=== PATIENT | female | born 1955 | race Caucasian/White ===

== ENCOUNTER 2021-10-13 12:44 | Emergency (ER) | payer OTHER ==
[~2021-10-13 12:44] MED LIST: ASPIRIN325 MG PO; ATORVASTATIN CA20 MG PO; IBUPROFEN800 M1 PO; METHYLPREDNISOLO4 M1 PO; PREDNISONE 5MG T5 MG PO; TERBINAFINE HC250 MG PO
== END 2021-10-13 15:46 | disposition home or self-care (01) ==
LOC: FER 12:44
DX: S16.1XXA Strain of muscle, fascia and tendon at neck level, initial encounter (principal); Z88.0 Allergy status to penicillin; Z88.6 Allergy status to analgesic agent; Z88.8 Allergy status to other drugs, medicaments and biological substances; W19.XXXA Unspecified fall, initial encounter
CPT/HCPCS: 70450; 71101; 72125